=== PATIENT | female | born 1980 | race Caucasian/White ===

== ENCOUNTER 2019-09-19 13:09 | Emergency (ER) | payer OTHER ==
[2019-09-19] MEDS ORDERED: IPRATROPIUM-ALBUTEROL 3 ML NEB INHALATION STA (13:36)
--- NOTE | 2019-09-19 13:47 | XR ---
EXAMINATION TYPE: XR chest 2V DATE OF EXAM: 09/19/2019 COMPARISON: 07/28/2015 HISTORY: Cough and congestion TECHNIQUE: Frontal and lateral views of the chest are obtained. FINDINGS: There is no focal air space opacity, pleural effusion, or pneumothorax seen. The cardiac silhouette size is upper limits of normal but stable. The osseous structures are intact. IMPRESSION: No acute cardiopulmonary process.
[2019-09-19] MEDS ORDERED: predniSONE 50 MG TAB PO STA (13:58)
--- NOTE | 2019-09-19 13:59 | ED ---
General Adult HPI - General Chief complaint: Upper Respiratory Infection Stated complaint: Cough Time Seen by Provider: 09/19/19 13:20 Source: patient, RN notes reviewed, old records reviewed Mode of arrival: ambulatory Limitations: no limitations - History of Present Illness Initial comments: 39-year-old female patient presents ED for chief complaint of one-week of cough, congestion. Patient reports that feels as if she has bronchitis. Patient denies any chest pain. Patient port that she has some shortness of breath while coughing. Patient is a smoker. Reports the cough is productive. Denies any fevers. Systemic: Pt denies fatigue, fever/chills, rash. Pt denies weakness, night sweats, weight loss. Neuro: Pt denies headache, visual disturbances, syncope or pre-syncope. HEENT: Pt denies ocular discharge or irritation, otalgia, rhinorrhea, pharyngitis or notable lymphadenopathy. Cardiopulmonary: Pt denies chest pain, heart palpitations, dyspnea on exertion. Abdominal/GI: Pt denies abdominal pain, n/v/d. : Pt denies dysuria, burning w/ urination, frequency/urgency. Denies new onset urinary or bowel incontinence. MSK: Pt denies myalgia, loss of strength or function in extremities. Neuro: Pt denies new onset weakness, paresthesias. - Related Data Previous Rx's Medication Instructions Recorded Albuterol Inhaler [Ventolin Hfa 1 - 2 puff INHALATION Q4-6H PRN #1 07/30/15 Inhaler] inhaler methylPREDNISolone Dose Pack 4 mg PO DIRECTED #21 package 07/30/15 [Medrol Dose Pack] Albuterol Inhaler [Ventolin Hfa 1 - 2 puff INHALATION Q4-6H PRN #1 09/19/19 Inhaler] inhaler predniSONE 50 mg PO DAILY #4 tab 09/19/19 Allergies Allergy/AdvReac Type Severity Reaction Status Date / Time No Known Allergies Allergy Verified 09/19/19 13:16 Review of Systems ROS Statement: Those systems with pertinent positive or pertinent negative responses have been documented in the HPI. ROS Other: All systems not noted in ROS Statement are negative. Past Medical History Past Medical History: No Reported History History of Any Multi-Drug Resistant Organisms: None Reported Past Surgical History: Section Past Psychological History: No Psychological Hx Reported Smoking Status: Current every day smoker Past Alcohol Use History: Occasional Past Drug Use History: None Reported General Exam - General Exam Comments Initial Comments: Constitutional: NAD, AOX3, Pt has pleasant affect. HEENT: NC/AT, trachea midline, neck supple, no lymphadenopathy. Posterior pharynx non erythematous, without exudates. External ears appear normal, without discharge. Mucous membranes moist. Eyes PERRLA, EOM intact. There is no scleral icterus. No pallor noted. Cardiopulmonary: RRR, no murmurs, rubs or gallops, no JVD noted. Mild wheezing noted in lower lung pruitt, resolved after breathing treatment.. No peripheral edema. Abdominal exam: Abdomen soft and non-distended. Abdomen non-tender to palpation in all 4 quadrants. Bowel sounds active in LLQ. No hepatosplenomegaly. No ecchymosis Neuro: CN II-XII grossly intact. No nuchal rigidity. No raccon eyes, no pinto sign, no hemotympanum. No cervical spinal tenderness. MSK: No posterior calf tenderness bilaterally, homans sign negative bilaterally. Posterior tibialis and radial pulse +2 bilaterally. Sensation intact in upper and lower extremities. Full active ROM in upper and lower extremities, 5/5 stregnth. Limitations: no limitations Course Vital Signs 09/19/19 13:14 Temperature 98.4 F Pulse Rate 110 H Respiratory 18 Rate Blood Pressure 131/64 O2 Sat by Pulse 97 Oximetry Medical Decision Making - Medical Decision Making 39-year-old female patient presents with chief complaint of one-week of cough. Feels as if she has bronchitis. Patient will sign displayed mild tachycardia, otherwise stable. Physical exam displayed mild wheezing in lower lower lung pruitt. Chest x-ray is negative. Patient feeling much improved after breathing treatment. Will discharge with burst steroid treatment and albuterol inhaler. We'll also patient follow up with primary care provider or return to ER condition worsens. Case discussed with Dr. Good. Disposition Clinical Impression: Acute bronchitis Disposition: HOME SELF-CARE Condition: Stable Instructions (If sedation given, give patient instructions): Acute Bronchitis (ED) Additional Instructions: Follow-up with primary care provider tomorrow. Take medication as directed. Return to ER if condition worsens. Prescriptions: predniSONE 50 mg PO DAILY #4 tab Albuterol Inhaler [Ventolin Hfa Inhaler] 1 - 2 puff INHALATION Q4-6H PRN #1 inhaler PRN Reason: Cough Is patient prescribed a controlled substance at d/c from ED?: No Referrals: Clement Sutherland MD [Primary Care Provider] - 1-2 days
[2019-09-19 14:47] VITALS: BP 124/74; PULSE 86; RESP 20; TEMP 97.9
== END 2019-09-19 14:47 | disposition home or self-care (01) ==
LOC: EC 13:09
DX: J20.9 Acute bronchitis, unspecified (principal); R00.0 Tachycardia, unspecified; F17.200 Nicotine dependence, unspecified, uncomplicated
CPT/HCPCS: 94640; 71046; 99285; J7512

== ENCOUNTER 2020-06-23 11:16 | Emergency (ER) | payer OTHER ==
[2020-06-23 11:21] VITALS: BP 154/60; TEMP 98
[2020-06-23 11:24] VITALS: PULSE 109; RESP 18
[2020-06-23] MEDS ORDERED: KETOROLAC 15 MG/ML 1 ML VIAL IM STA (11:36)
--- NOTE | 2020-06-23 11:42 | ED ---
ENT HPI - General Chief complaint: Dental/Oral Stated complaint: Dental Pain Time Seen by Provider: 06/23/20 11:23 Source: patient Mode of arrival: ambulatory Limitations: no limitations - History of Present Illness Initial comments: Patient is a 40-year-old female presenting to the emergency Department with complaints of a possible dental abscess for the past 2 days. Patient states she first noticed the pain 2-3 days ago and then the swelling increased this morning. Patient denies any fever, chills, nausea, vomiting. She states she now she has fractured teeth on the upper left side and feels like it is coming from that. She states she has not seen a dentist in a few years. She has no further complaints at this time. She states she is not at this time. Upon arrival to the ER, her vital signs are stable. - Related Data Previous Rx's Medication Instructions Recorded Albuterol Inhaler (Mhu) [Ventolin 1 - 2 puff INHALATION Q4-6H PRN #1 07/30/15 Hfa Inhaler (Mhu)] inhaler methylPREDNISolone Dose Pack 4 mg PO DIRECTED #21 package 07/30/15 [Medrol Dose Pack] Albuterol Inhaler (Mhu) [Ventolin 1 - 2 puff INHALATION Q4-6H PRN #1 09/19/19 Hfa Inhaler (Mhu)] inhaler predniSONE 50 mg PO DAILY #4 tab 09/19/19 Hydrocodone/Acetaminophen [[place] 1 tab PO Q6HR PRN #10 tab 06/23/20 5-325] Penicillin V Potassium [Pen Vee K] 500 mg PO QID 7 Days #28 tablet 06/23/20 Allergies Allergy/AdvReac Type Severity Reaction Status Date / Time No Known Allergies Allergy Verified 09/19/19 13:16 Review of Systems ROS Statement: Those systems with pertinent positive or pertinent negative responses have been documented in the HPI. ROS Other: All systems not noted in ROS Statement are negative. Past Medical History Past Medical History: No Reported History History of Any Multi-Drug Resistant Organisms: None Reported Past Surgical History: Section Past Psychological History: No Psychological Hx Reported Smoking Status: Current every day smoker Past Alcohol Use History: Occasional Past Drug Use History: None Reported General Exam - General Exam Comments Initial Comments: GENERAL: Patient is well-developed and well-nourished. Patient is nontoxic and in no acute distress. HEAD: Atraumatic, normocephalic. EYES: Pupils equal round and reactive to light, extraocular movements intact, sclera anicteric, conjunctiva are normal. Eyelids were unremarkable. ENT: TMs normal, nares patent, oropharynx clear without exudates. Moist mucous membranes. Patient has many dental caries, fractured teeth. Pain with palpation of teeth #13-14. There is no visible abscess to drain. There is some mild to moderate swelling on the left side of the cheek. No overlying erythema. NECK: Normal range of motion, supple without lymphadenopathy or JVD. LUNGS: Unlabored respirations. Breath sounds clear to auscultation bilaterally and equal. No wheezes rales or rhonchi. HEART: Regular rate and rhythm without murmurs, rubs or gallops. ABDOMEN: Soft, nontender, normoactive bowel sounds. No guarding, no rebound. No masses appreciated. : Deferred MUSCULOSKELETAL: Normal extremities with adequate strength and normal range of motion, no pitting or edema. No clubbing or cyanosis. NEUROLOGICAL: Patient is alert and oriented x 3. Normal speech, normal gait. PSYCH: Normal mood, normal affect. SKIN: Warm, Dry, normal turgor, no rashes or lesions noted. Limitations: no limitations Course Vital Signs 06/23/20 11:18 Temperature 98 F Pulse Rate 109 H Respiratory 18 Rate Blood Pressure 154/60 O2 Sat by Pulse 99 Oximetry Medical Decision Making - Medical Decision Making Patient is a 40-year-old female here for a dental abscess on the left upper teeth. She does have many fractures dental caries. Her vital signs are stable, afebrile. Patient will be given Toradol for discomfort and started on penicillin VK. I will also give short prescription for [place] for discomfort. She needs to follow-up with a dentist RONNELL. I also recommended alternating with ibuprofen or Aleve. She is in agreement with this plan of care. Return parameters were discussed with the patient she verbalized understanding. Case discussed with Dr. Lomax. Disposition Clinical Impression: Dental abscess, Dental caries, Fracture of tooth Disposition: HOME SELF-CARE Condition: Stable Instructions (If sedation given, give patient instructions): Dental Abscess (ED) Additional Instructions: Please return to the Emergency Department if symptoms worsen or any other concerns. Take antibiotic as prescribed. Alternate pain medicine with ibuprofen. Follow-up with dentist RONNELL. Prescriptions: Hydrocodone/Acetaminophen [[place] 5-325] 1 tab PO Q6HR PRN #10 tab PRN Reason: Pain Penicillin V Potassium [Pen Vee K] 500 mg PO QID 7 Days #28 tablet Is patient prescribed a controlled substance at d/c from ED?: Yes When asked, does pt state using other controlled substances?: No If prescribed controlled substance>3 days was MAPS reviewed?: Prescribed <3 Days If opioid is for acute pain is fill amount 7 days or less?: Yes If Rx opioid, was Start Talking consent form obtained?: Yes Referrals: None,Stated [Primary Care Provider] - 1-2 days
== END 2020-06-23 11:48 | disposition home or self-care (01) ==
LOC: EC 11:16
DX: S02.5XXA Fracture of tooth (traumatic), initial encounter for closed fracture (principal); K04.7 Periapical abscess without sinus; K02.9 Dental caries, unspecified; F17.200 Nicotine dependence, unspecified, uncomplicated; X58.XXXA Exposure to other specified factors, initial encounter
CPT/HCPCS: 99282; 96372; J1885

== ENCOUNTER 2022-09-08 12:12 | Emergency (ER) | payer OTHER ==
[2022-09-08 13:31] VITALS: RESP 18
--- NOTE | 2022-09-08 13:49 | XR ---
EXAMINATION TYPE: XR chest 2V DATE OF EXAM: 09/08/2022 COMPARISON: Prior chest x-ray 2019 HISTORY: Cough. TECHNIQUE: Frontal and lateral views of the chest are obtained. FINDINGS: There is no suspicious focal air space opacity, pleural effusion, or pneumothorax seen. T he cardiac silhouette size is stable and within normal limits. The osseous structures are intact. IMPRESSION: No acute pulmonary process.
[2022-09-08] MEDS ORDERED: dexAMETHasone 2 MG TAB PO STA (14:14)
[2022-09-08] MEDS ORDERED: AZITHROMYCIN 500 MG TAB PO STA (14:14)
--- NOTE | 2022-09-08 14:16 | ED ---
General Adult HPI - General Chief complaint: Upper Respiratory Infection Stated complaint: cough, congestion, wheezing Time Seen by Provider: 09/08/22 13:55 Source: patient, RN notes reviewed, old records reviewed Mode of arrival: ambulatory Limitations: no limitations - History of Present Illness Initial comments: Patient is a 42-year-old female who presents emergency Department complaining of cough, congestion, as well as wheezing. Is a smoker. No smoking past medical history otherwise. Symptoms have been ongoing for 4 days. Denies sore throat. Denies shortness of breath. Denies chest pain. Denies nausea or vomiting or abdominal pain. No other acute complaint this time. Presents over concern for upper respiratory illness.Denies any history of COPD or asthma. - Related Data Previous Rx's Medication Instructions Recorded Albuterol Inhaler [Ventolin Hfa 1 - 2 puff INHALATION Q4-6H PRN #1 07/30/15 Inhaler] inhaler methylPREDNISolone Dose Pack 4 mg PO DIRECTED #21 package 07/30/15 [Medrol Dose Pack] Albuterol Inhaler [Ventolin Hfa 1 - 2 puff INHALATION Q4-6H PRN #1 09/19/19 Inhaler] inhaler predniSONE 50 mg PO DAILY #4 tab 09/19/19 Hydrocodone/Acetaminophen [[place] 1 tab PO Q6HR PRN #10 tab 06/23/20 5-325] Penicillin V Potassium [Pen Vee K] 500 mg PO QID 7 Days #28 tablet 06/23/20 Albuterol Inhaler [Ventolin Hfa 1 - 2 puff INHALATION Q6H PRN #1 09/08/22 Inhaler] dispenser Azithromycin [Zithromax] 250 mg PO DAILY 4 Days #4 tab 09/08/22 Allergies Allergy/AdvReac Type Severity Reaction Status Date / Time No Known Allergies Allergy Verified 09/08/22 12:30 Review of Systems ROS Statement: Those systems with pertinent positive or pertinent negative responses have been documented in the HPI. Review of Systems: CONST: Denies fever EYES: Denies blurry vision ENT: Endorses nasal congestion C/V: Denies Chest pain RESP: Denies shortness of breath GI: Denies abdominal pain : Denies dysuria SKIN: Denies rash. MSK: Denies joint pain. NEURO: Denies headache ROS Other: All systems not noted in ROS Statement are negative. Past Medical History Past Medical History: No Reported History Additional Past Medical History / Comment(s): Bronchitis History of Any Multi-Drug Resistant Organisms: None Reported Past Surgical History: Section Past Psychological History: No Psychological Hx Reported Smoking Status: Current every day smoker Past Alcohol Use History: Occasional Past Drug Use History: None Reported General Exam - General Exam Comments Initial Comments: General: Appears in no acute distress. HEAD: Normal with no signs of head trauma. EYES: EOMI ENT: Hearing grossly intact, normal oropharynx. RESPIRATORY: Clear breath sounds bilaterally. No wheezes, rales, or rhonchi. No respiratory distress. No hypoxia. C/V: Regular rate and rhythm. S1 and S2 auscultated, no edema, peripheral pulses 2+ and intact throughout ABD: Abd is soft, nontender, nondistended EXT: no obvious deformity SKIN: No rashes or lesions observed on exposed skin. NEURO: Alert and oriented x 4. Limitations: no limitations Course Vital Signs 09/08/22 09/08/22 09/08/22 12:28 13:29 14:24 Temperature 98.6 F 98.7 F Pulse Rate 84 82 Respiratory 20 18 18 Rate Blood Pressure 164/82 134/78 O2 Sat by Pulse 99 97 Oximetry Medical Decision Making - Medical Decision Making Based on the patient's presentation and physical exam, I'm concerned for upper respiratory illness and the patient. We'll start in triage. Vital signs within normal limits. Exam is unremarkable. Covid influenza negative. Chest x-ray shows no acute cardiopulmonary process. No respiratory distress. No hypoxia. I discussed results with her. She denies any history of smoking, I'm concerned for possible bronchitis. She'll be given a dose of steroids in the department as well as a dose of azithromycin here for bronchitis. She'll be discharged home with a prescription for an albuterol inhaler as well as azithromycin. She was in agreement with this plan. I answered all questions that she had. I will provide the patient with a prescription for albuterol inhaler, azithromycin. I instructed the patient to follow up with their PCP in the next 1-3 days. I explained that the patient should return to the emergency department if they experience any worsening symptoms. Strict return precautions were discussed with the patient. The patient expressed understanding of these instructions. I answered all questions that the patient had. The patient was discharged home in good condition with their prescriptions and follow up information. Patient did: Requested prescriptions be sent to [facility]. This was changed. - Lab Data Lab Results 09/08/22 09/08/22 Range/Units 12:34 12:34 Coronavirus (PCR) Not Detected (Not Detectd) Influenza Type A RNA Not Detected (Not Detectd) Influenza Type B (PCR) Not Detected (Not Detectd) Disposition Clinical Impression: Bronchitis Disposition: HOME SELF-CARE Condition: Good Instructions (If sedation given, give patient instructions): Acute Bronchitis (ED) Prescriptions: Albuterol Inhaler [Ventolin Hfa Inhaler] 1 - 2 puff INHALATION Q6H PRN #1 dispenser PRN Reason: Cough Azithromycin [Zithromax] 250 mg PO DAILY 4 Days #4 tab Is patient prescribed a controlled substance at d/c from ED?: No Referrals: Clement Sutherland MD [Primary Care Provider] - 1-2 days Time of Disposition: 14:10
[2022-09-08 14:25] VITALS: BP 134/78; PULSE 82; TEMP 98.7
== END 2022-09-08 14:25 | disposition home or self-care (01) ==
LOC: EC 12:12
DX: J40 Bronchitis, not specified as acute or chronic (principal); F17.200 Nicotine dependence, unspecified, uncomplicated; Z20.822 Contact with and (suspected) exposure to COVID-19
CPT/HCPCS: 87502; 87635; 71046; 99285; J8540

== ENCOUNTER 2024-10-18 10:58 | Emergency (ER) | payer OTHER ==
[2024-10-18 11:12] VITALS: TEMP 98.8
--- NOTE | 2024-10-18 11:50 | XR ---
EXAMINATION TYPE: XR chest 2V DATE OF EXAM: 10/18/2024 11:35 AM COMPARISON: Chest radiographs from 09/08/2022 TECHNIQUE: XR chest 2V Frontal and lateral views of the chest. CLINICAL INDICATION:Female, 44 years old with history of Cough; FINDINGS: Lungs/Pleura: No pleural effusion or pneumothorax. Right basilar patchy subtle air space opacity. Pulmonary vascularity: Unremarkable. Heart/mediastinum: Cardiomediastinal silhouette is unremarkable. Musculoskeletal: No acute osseous pathology. IMPRESSION: Right basilar patchy subtle air space opacity concerning for possible pneumonia versus atelectasis. [facility], , 10/18/2024 11:47 AM
--- NOTE | 2024-10-18 11:58 | ED ---
SOB HPI - General Chief Complaint: Shortness of Breath Stated Complaint: SOB Time Seen by Provider: 10/18/24 11:57 Source: patient, RN notes reviewed Mode of arrival: ambulatory Limitations: no limitations - History of Present Illness Initial Comments: This is a 44-year-old female who presents to the emergency department for coughing, congestion, and shortness of breath. States that it started 2 days ago. Denies any chest pain, fevers, or chills. States that every year around this time she gets bronchitis and states that it feels the same. Denies any sick contacts. She is a smoker but denies any history of asthma or COPD. MD Complaint: cough - Related Data Previous Rx's Medication Instructions Recorded Albuterol Inhaler [Ventolin Hfa 1 - 2 puff INHALATION Q4-6H PRN #1 07/30/15 Inhaler] inhaler methylPREDNISolone Dose Pack 4 mg PO DIRECTED #21 package 07/30/15 [Medrol Dose Pack] Albuterol Inhaler [Ventolin Hfa 1 - 2 puff INHALATION Q4-6H PRN #1 09/19/19 Inhaler] inhaler predniSONE 50 mg PO DAILY #4 tab 09/19/19 Hydrocodone/Acetaminophen [[place] 1 tab PO Q6HR PRN #10 tab 06/23/20 5-325] Penicillin V Potassium [Pen Vee K] 500 mg PO QID 7 Days #28 tablet 06/23/20 Albuterol Inhaler [Ventolin Hfa 1 - 2 puff INHALATION Q6H PRN #1 09/08/22 Inhaler] dispenser Azithromycin [Zithromax] 250 mg PO DAILY 4 Days #4 tab 09/08/22 Albuterol Sulfate [Albuterol 1 - 2 puff PO Q4-6H PRN #8.5 gm 10/18/24 Sulfate Hfa] Azithromycin [Zithromax] 250 mg PO DIRECTED 5 Days #6 tab 10/18/24 Benzonatate [Tessalon Perle] 200 mg PO TID PRN #30 capsule 10/18/24 predniSONE 50 mg PO DAILY 5 Days #5 tab 10/18/24 Allergies Allergy/AdvReac Type Severity Reaction Status Date / Time No Known Allergies Allergy Verified 10/18/24 11:07 Review of Systems ROS Statement: Those systems with pertinent positive or pertinent negative responses have been documented in the HPI. ROS Other: All systems not noted in ROS Statement are negative. Past Medical History Past Medical History: No Reported History Additional Past Medical History / Comment(s): Bronchitis History of Any Multi-Drug Resistant Organisms: None Reported Past Surgical History: Section Past Psychological History: No Psychological Hx Reported Smoking Status: Current every day smoker Past Alcohol Use History: Heavy Past Drug Use History: None Reported General Exam Limitations: no limitations General appearance: alert, in no apparent distress Head exam: Present: atraumatic, normocephalic, normal inspection Respiratory exam: Present: normal lung sounds bilaterally. Absent: respiratory distress, wheezes, rales, rhonchi, stridor Cardiovascular Exam: Present: regular rate, normal rhythm, normal heart sounds. Absent: systolic murmur, diastolic murmur, rubs, gallop, clicks Neurological exam: Present: alert, oriented X3, CN II-XII intact Psychiatric exam: Present: normal affect, normal mood Skin exam: Present: warm, dry, intact, normal color. Absent: rash Course Vital Signs 10/18/24 10/18/24 11:08 14:30 Temperature 98.8 F Pulse Rate 93 80 Respiratory 18 22 Rate Blood Pressure 131/78 125/82 O2 Sat by Pulse 97 80 L Oximetry Medical Decision Making - Medical Decision Making This is a 44-year-old female who presents to the emergency department for coughing and congestion. Was pt. sent in by a medical professional or institution? @ -No Did you speak to anyone other than the patient for history? @ -No Did you review nursing and triage notes? @ -Yes, and I agree, it is accurate with regards to the patient's symptoms. Were old charts reviewed? @ -No Differential Diagnosis? @ -Differential Cough: Influenza, Covid, RSV, croup, allergic rhinitis, GERD, pneumonia, bronchitis, COPD, viral pharyngitis, streptococcal pharyngitis, this is not meant to be an all-inclusive list. EKG interpreted by me (3pts min.)? @ -Not obtained X-rays interpreted by me (1pt min.)? @ -Chest x-ray obtained. My interpretation identifies a right basilar airspace opacity CT interpreted by me (1pt min.)? @ -Not obtained U/S interpreted by me (1pt. min.)? @ -Not obtained What testing was considered but not performed? (CT, X-rays, U/S, labs)? Why? @ -Cepheid 4 Plex testing, however patient did not want to wait. What meds were considered but not given? Why? @ -None Did you discuss the management of the patient with other professionals? @ -No Did you reconcile home meds? @ -No Was smoking cessation discussed for >3mins.? @ -I discussed smoking cessation for greater than 3 minutes. The risk of smoking were discussed with the patient including but not limited to risks of cancer, stroke, coronary artery disease and COPD. Also discussed with patient were multiple methods of quitting smoking. Lastly we discussed the financial cost of smoking. Was critical care preformed (if so, how long)? @ -No Were there social determinants of health that impacted care today? How? (Homelessness, low income, unemployed, alcoholism, drug addiction, transportation, low edu. Level, literacy, decrease access to med. care, detention, rehab)? @ -No Was there de-escalation of care discussed even if they declined? (Discuss DNR or withdrawal of care, Hospice)? @ -No What co-morbidities impacted this encounter? (DM, HTN, Smoking, COPD, CAD, Cancer, CVA, Hep., AIDS, mental health diagnosis, sleep apnea, morbid obesity)? @ -Smoking Was patient admitted / discharged? @ -Discharged. Chest x-ray had been obtained when the patient was in the waiting room. This demonstrated a right basilar patchy subtle airspace opacity concerning for pneumonia. I did advise we also obtain the Cepheid 4 Plex testing, however she did not want to wait. States that she wanted to be treated for the pneumonia and discharged home. Prescription for azithromycin, prednisone, albuterol inhaler, Tessalon Perles provided. Advised follow-up with her PCP for reevaluation. Patient discharged home in stable condition. Case discussed with ED attending Dr. Lomax. Of note, oxygen saturation was incorrectly charted when patient was discharged. Return precautions reviewed in depth, the patient is instructed to return to the emergency department with any new, worsening, or concerning symptoms. Patient verbalized understanding. Undiagnosed new problem with uncertain prognosis? @ -None Drug Therapy requiring intensive monitoring for toxicity (Heparin, Nitro, Insulin, Cardizem)? @ -None Were any procedures done? @ -None Diagnosis/symptom? @ -Pneumonia Acute, or Chronic, or Acute on Chronic? @ -Acute Uncomplicated (without systemic symptoms) or Complicated (systemic symptoms)? @ -Uncomplicated Side effects of treatment? @ -None Exacerbation, Progression, or Severe Exacerbation] @ -Not applicable Poses a threat to life or bodily function? @ -No - Radiology Data Radiology results: report reviewed, image reviewed Disposition Clinical Impression: Pneumonia, Nicotine dependence Disposition: HOME SELF-CARE Instructions (If sedation given, give patient instructions): Pneumonia (ED) Additional Instructions: Return to the emergency department with any new, worsening, or concerning symptoms. Take the antibiotic as prescribed for 5 days. Take the prednisone daily for 5 days. You can have the cough medication up to every 8 hours as needed. You can use the albuterol inhaler every 4-6 hours as needed for shortness of breath. Follow up with your primary care provider in 1-2 days. Prescriptions: Albuterol Sulfate [Albuterol Sulfate Hfa] 1 - 2 puff PO Q4-6H PRN #8.5 gm PRN Reason: Shortness Of Breath predniSONE 50 mg PO DAILY 5 Days #5 tab Benzonatate [Tessalon Perle] 200 mg PO TID PRN #30 capsule PRN Reason: Cough Azithromycin [Zithromax] 250 mg PO DIRECTED 5 Days #6 tab Is patient prescribed a controlled substance at d/c from ED?: No Referrals: Clement Sutherland MD [Primary Care Provider] - 1-2 days Time of Disposition: 13:28
[2024-10-18 14:37] VITALS: BP 125/82; PULSE 80; RESP 22
== END 2024-10-18 14:38 | disposition home or self-care (01) ==
LOC: EC 10:58
DX: J18.9 Pneumonia, unspecified organism (principal); F17.200 Nicotine dependence, unspecified, uncomplicated
CPT/HCPCS: 71046; 99284; 99406